=== PATIENT | female | born 1950 | race Caucasian/White ===

== ENCOUNTER 2023-03-23 21:13 | Emergency (ER) | payer MEDICARE, OTHER, SELFPAY ==
[2023-03-23 21:14] VITALS: BMI 34.9
[2023-03-23 21:19] VITALS: BP 145/64
[2023-03-23 21:20] VITALS: BP 145/64
--- NOTE | 2023-03-23 21:25 | ED.GENMED ---
History of Present Illness
General
Chief Complaint: Abdominal Symptoms
Time Seen by Provider: 03/23/23 21:22
Travel History
Have you had any contact with someone who has COVID-19?: No
Do you have any symptoms of coronavirus? Fever > 100 degrees, chills, cough, shortness of breath, sore throat, loss of taste or smell, muscle aches, or headache?: No
History of Present Illness
History of Present Illness:
HPI: The patient presents due to vomiting and decreased oral intake. Son states that she has been more confused. She does have a history of dementia and she has not been taking her insulin and normally does not let anybody else assist her with it.
The patient currently does not provide any meaningful history.
EXAM:
GENERAL: Appears in no distress
HEENT: Dry oral mucosa
CARDIOVASCULAR: Regular rate and rhythm
PULMONARY: No respiratory distress, breathing is nonlabored, equal and clear breath sounds
ABDOMEN: Soft and nontender with no peritoneal signs
NEUROLOGIC: The patient has evidence of dementia, not oriented to month or place, strength is equal in all extremities
EXTREMITIES: Moves all extremities equally, no tenderness, no edema
PYSCHIATRIC: Very limited historian, poor insight and judgment
ED COURSE:
9:30 PM: I initially evaluated patient
NUMBER AND COMPLEXITY OF PROBLEMS ADDRESSED AT THE ENCOUNTER
� Chronic conditions affecting care: Dementia/Parkinson's/history of neuroencephalitis, high blood pressure, hyperlipidemia, diabetes
� Acute Exacerbation and/or Progression of Chronic Illness: This is an acute problem
� Differential Diagnosis includes: Progression of dementia, UTI, poorly controlled diabetes, infection
AMOUNT AND/OR COMPLEXITY OF DATA TO BE REVIEWED AND ANALYZED
� I performed an independent evaluation of and my interpretation is:
EKG:
CT:
X-rays: Chest x-ray shows no acute abnormality
Laboratory Studies: White count is normal 7.2, hemoglobin normal, bicarb is normal, creatinine normal, glucose is high at 250, ketones are noted in the urine ever she is a diabetic there is no clear evidence for infection in the
urinary tract, beta hydroxy is slightly elevated
Other:
� Review of other/old records: I reviewed old records including lab work from last year
� Clinical information was obtained by an independent historian: I spoke to son for history
� Prescriptions/Medications Considered but not given:
� Further testing considered but not performed:
RISK OF COMPLICATIONS AND/OR MORBIDITY OR MORTALITY OF PATIENT MANAGEMENT
� Social determinants of health affecting care: Lives at home
� Discussion with other providers:
� Escalation of care including admission/observation vs risk of discharge considered: The patient was given some IV fluids. The patient appears pleasant but does have dementia on reassessment 11:10 PM. She appears fairly
well-hydrated. Relatively unremarkable ED workup.
Past History
Past History
ED Past Medical History: HTN, Hypercholesterolemia and IDDM
ED Past Surgical History: Orthopedic (Left TKR)
Social History
Tobacco: Non-smoker
Alcohol: None
Living: with family
Phy Exam
Physical Exam
Physical Exam:
See HPI
Course
Orders/Labs/Results
Orders:
Orders
03/23/23 21:25
0.9% Sodium Chloride 1000 ml [Nss] 1,000 ml IV BOLUS
03/23/23 21:31
Straight cath- Treatment ONCE
Acetone [B-Hydroxybutyrate] Urgent
Complete Blood Count/With Diff Urgent
Comprehensive Metabolic Panel Urgent
Lipase Urgent
03/23/23 22:03
CR Chest - 2 Views Urgent
Comment:
Reason For Exam: cough
03/23/23 22:23
COVID-19 Antigen Urgent
Source: Nasal Swab
Urinalysis Reflex To Culture Urgent
Date Specimen was Collected: 03/23/23
Time Specimen was Collected: 22:20
Influenza A+B Rapid Molecular Urgent
DAMIR Source: Nasal Swab
Specimen Description:
Abnormal Lab Results
03/23/23 03/23/23
21:31 22:23
RBC 4.16 L 10^6/uL
(4.20-5.40)
Hct 35.8 L %
(37.0-47.0)
Absolute Lymphs (auto) 1.1 L 10^3/uL
(1.2-3.4)
Neutrophils % 76.1 H %
(42.2-75.2)
Lymphocytes % 15.5 L %
(20.5-51.1)
Sodium 131 L mmol/L
(135-145)
BUN 21 H mg/dl
(7-17)
Glucose 250 H mg/dl
(70-99)
Urine Ketones 3+ A
(Negative)
Urine Bilirubin 1+ A
(Negative)
Urine Glucose 3+ A
(Negative)
B-Hydroxybutyrate 0.86 H mmol/L
(0.02-0.27)
03/23/23 21:31
03/23/23 21:31
Vital Signs
Initial and Last Documented VS:
Initial Vital Signs
Temp Pulse Resp BP Pulse Ox
98.2 F 74 15 145/64 99
03/23/23 21:19 03/23/23 21:19 03/23/23 21:19 03/23/23 21:19 03/23/23 21:19
Last Documented Vital Signs
Temp Pulse Resp BP Pulse Ox
98.2 F 71 15 137/43 100
03/23/23 21:19 03/23/23 22:30 03/23/23 22:30 03/23/23 22:00 03/23/23 22:30
*Critical Care Note
Total Time (30-74mins, 75-104mins- exclusive of procedures): Not Applicable
ED Attending Note
-
Portions of this chart may have been created with voice recognition software.� Occasional wrong word or��sound alike� substitutions may have occurred due to the inherent limitations of voice recognition software.
Discharge Plan
Departure
Patient Disposition: Home (Routine Discharge)
Date of Disposition: 03/23/23
Time of Disposition: 23:11
Patient with high blood pressure during this ER visit?: Yes
Discharge Problem:
Acute hyperglycemia
Referrals:
Jeniffer West CRNP [Family Provider] -
Activity Restrictions/Additional Instructions:
The cause of the symptoms is unclear. The vital signs are normal with exception of slightly elevated blood pressure. The white blood cell count is normal. The hemoglobin is normal, sodium is slightly low at 131 but not low enough to say that this
is the cause of her symptoms. Her bicarbonate level is normal, the glucose level is 250. Liver and pancreas tests are normal. COVID test is negative,. Chest x-ray shows no sign of pneumonia, flu is negative. Return here if worse. She was given
IV fluids to ensure hydration.
Interventions
Interventions:
*Risk Screen - Suicide Last Done: 03/23/23 21:19
*Neglect/Abuse Screening Last Done: 03/23/23 21:19
ED- Fall Risk Assessment Last Done: 03/23/23 21:24
EF-Hqfspi-Cdimaqzafh Assessment Last Done: 03/23/23 21:24
[2023-03-23] MEDS: NSS 1000 IV (21:33)
[2023-03-23 21:42] LABS: % Basophils 0.1 % (0-2); % Immature Granulocytes 0.3 % (0-0.5); % Lymphocytes 15.5 % (20.5-51.1); % Neutrophils 76.1 % (42.2-75.2); Absolute Lymphocytes 1.1 10^3/uL (1.2-3.4); Absolute Monocytes 0.6 10^3/uL (0.1-0.6); Absolute Neutrophils 5.5 10^3/uL (1.4-6.5); Hematocrit 35.8 % (37.0-47.0); Hemoglobin 12.6 g/dL (12.0-16.0); Mean Corp Hgb Conc. 35.2 g/dL (33.0-37.0); Mean Corpuscular Hgb 30.3 pg (27.0-31.0); Mean Corpuscular Volume 86.1 fL (81.0-99.0); Mean Platelet Volume 10.4 fL (7.4-10.4); Nucleated Red Blood Cells % 0 %; Platelet Count 208 10^3/uL (130-400); Red Blood Cell Count 4.16 10^6/uL (4.20-5.40); Red Cell Dist. Width 11.9 % (11.5-14.5); White Blood Cell Count 7.2 10^3/uL (4.8-10.8)
[2023-03-23 21:57] LABS: ALT (SGPT) 20 U/L (0-35); AST (SGOT) 26 U/L (14-36); Albumin 4.1 g/dl (3.5-5.0); Alkaline Phosphatase 103 U/L (38-126); Blood Urea Nitrogen 21 mg/dl (7-17); Carbon Dioxide 24 mmol/L (22-30); Chloride 101 mmol/L (98-107); Estimated Creatinine Clearance 75 ml/min; Glucose 250 mg/dl (70-99); Lipase 51 U/L (23-300); Sodium 131 mmol/L (135-145); Total Bilirubin 0.8 mg/dl (0.2-1.3); Total Protein 6.8 g/dl (6.3-8.2); eGFR > 60.00
[2023-03-23 22:00] VITALS: BP 137/43
[2023-03-23 22:03] LABS: B-Hydroxybutyrate 0.86 mmol/L (0.02-0.27)
[2023-03-23 22:07] LABS: Potassium 4.2 mmol/L (3.5-5.1)
[2023-03-23 22:32] LABS: Urine Albumin Trace (Neg - Trace); Urine Bilirubin 1+ (Negative); Urine Character Clear (Clear); Urine Color Yellow; Urine Glucose 3+ (Negative); Urine Ketone 3+ (Negative); Urine Leukocyte Negative (Negative); Urine Nitrite Negative (Negative); Urine Occult Blood Negative (Negative); Urine Specific Gravity 1.025 (<1.030); Urine Urobilinogen Negative (Neg - 1+)
[2023-03-23 22:45] LABS: COVID-19 Antigen Negative (Negative)
== END 2023-03-24 | disposition home or self-care (01) ==
LOC: EMR 21:13
PROVIDERS: EMERGENCY PHYSICIAN Emergency Medicine; FAMILY PHYSICIAN Nurse Practitioner Adult Health
DX: E11.65 Type 2 diabetes mellitus with hyperglycemia (principal); F02.80 Dementia in other diseases classified elsewhere, unspecified severity, without behavioral disturbance, psychotic disturbance, mood disturbance, and anxiety; G20.A1 Parkinson's disease without dyskinesia, without mention of fluctuations; I10 Essential (primary) hypertension; E78.00 Pure hypercholesterolemia, unspecified; Z11.52 Encounter for screening for COVID-19
CPT/HCPCS: 99284; 96360; 71046; 80053; 81003; 82010; 83690; 85025; 87502; 87811